=== PATIENT | male | born 1965 | race African-American/Black ===

== ENCOUNTER 2021-06-14 14:45 | Inpatient (IN) | payer MEDICAID ==
[~2021-06-14] VITALS: Ht 182.9 cm; Wt 103.0 kg
[~2021-06-14 14:45] MED LIST: AMLO-258 PO; ARIP5TAB37 PO; ASPI-1450 PO; ATEN-72 PO; ATOR20TA86 PO; BUSP10TA23 PO; DULO30CA89 PO; LISI20TA PO; METF-1211 PO; PANT-31 PO
[2021-06-14] MEDS ORDERED: KETOROLAC TROMETHAMINE 30 MG/ML VIAL IVP ONE (15:00)
[2021-06-14] MEDS ORDERED: SODIUM CHLORIDE 0.9% 100 ML ONE ×2 (15:07→22:32)
[2021-06-14] MEDS ORDERED: IOHEXOL 350 MG/ML 100 ML VIAL ONE ×2 (15:07→22:32)
[2021-06-14 15:32] LABS: COVID AG,FIA SOURCE NASOPHARYNGEAL
[2021-06-14 15:35] LABS: EOSINOPHILS % (AUTO) 1.6 % (1.0-6.0); HEMATOCRIT 42.3 % (41-53); HEMOGLOBIN 14.9 g/dL (13.5-17.5); LYMPHOCYTES # (AUTO) 1.6 K/uL (1.0-4.8); LYMPHOCYTES % (AUTO) 27.8 % (22.0-44.0); MEAN CORPUSCULAR HGB CONC 35.1 G/dL (31.0-37.0); MEAN CORPUSCULAR VOLUME 83 fL (80-100); MONOCYTES # (AUTO) 0.3 K/uL (0.1-1.0); MONOCYTES % (AUTO) 5.9 % (2.0-9.0); NEUTROPHILS # (AUTO) 3.7 K/uL (1.8-7.7); NEUTROPHILS % (AUTO) 63.7 % (40.0-70.0); PLATELET COUNT (AUTO) 248 K/uL (150-450); RED BLOOD CELL COUNT(AUTO) 5.12 MIL/uL (4.50-5.90); RED CELL DISTRIBUTION WIDTH 15.6 % (11.5-14.5)
[2021-06-14 15:50] LABS: ANION GAP 5 mmol/L (8-16); CALCIUM, TOTAL 9.3 mg/dL (8.8-10.5); CARBON DIOXIDE 29 mmol/L (22-29); CHLORIDE 105 mmol/L (98-107); CREATININE 1.32 mg/dL (0.60-1.30); GLUCOSE,RANDOM 104 mg/dL (70-110); POTASSIUM 3.5 mmol/L (3.5-5.1); SODIUM SERUM 139 mmol/L (136-145); UREA NITROGEN, BLOOD 18 mg/dL (7-18)
[2021-06-14 15:51] LABS: GLOMERULAR FILTR. RATE CALC > 60 mL/min (>60)
[2021-06-14 15:56] LABS: ALANINE AMINOTRANSFERASE 25 U/L (12-78); ALBUMIN 3.1 g/dL (3.4-5.0); ALKALINE PHOSPHATASE 153 U/L (46-116); ASPARTATE AMINOTRANSFERASE 19 U/L (15-37); BILIRUBIN,TOTAL 0.2 mg/dL (0.1-1.0); CREATINE KINASE, TOTAL ONLY 63 U/L (39-308); TOTAL PROTEIN, SERUM 6.9 g/dL (6.4-8.2)
[2021-06-14 16:02] LABS: PROTHROMBIN TIME 10.7 SEC (9.4-11.6)
[2021-06-14 16:46] LABS: B-TYPE NATRIURETIC PEPTIDE 40 pg/mL (0-100)
[2021-06-14 17:07] LABS: GLUCOMETER DEV NAME(LOC) ERT.5; GLUCOSE,POINT OF CARE 101 MG/DL (70-110)
[2021-06-14 17:09] LABS: APPEARANCE,URINE CLEAR (CLEAR); BILIRUBIN,URINE NEGATIVE (NEGATIVE); GLUCOSE, URINE (UA) 100 mg/dL (NEGATIVE); KETONES,URINE NEGATIVE (NEGATIVE); LEUKOCYTE ESTERASE ,URINE NEGATIVE (NEGATIVE); NITRATE,URINE NEGATIVE (NEGATIVE); OCCULT BLOOD,URINE NEGATIVE (NEGATIVE); PROTEIN,URINE SEE CONFIRM (NEGATIVE)
[2021-06-14 18:01] LABS: SULFOSALICYLIC ACID,URINE 3+ (Negative)
[2021-06-14 18:16] LABS: BACTERIA,URINE None Seen /HPF (None Seen); RBC,URINE None Seen /HPF (0-2); WBC,URINE 0-2 /HPF (0-5)
[2021-06-14] MEDS ORDERED: MAGNESIUM HYDROXIDE SUSPENSION 30 ML UDCUP PO PRN (19:15)
[2021-06-14] MEDS ORDERED: ZOLPIDEM TARTRATE 5 MG TABLET PO PRN (19:15)
[2021-06-14] MEDS ORDERED: HydrALAZINE HCL 20 MG/ML VIAL IVP ONE (19:15)
[2021-06-14] MEDS ORDERED: BISACODYL 10 MG RECTAL RECTAL SUPPOSITORY PR PRN (19:15)
[2021-06-14] MEDS ORDERED: ALBUTEROL SULFATE 2.5 MG/0.5 ML NEB SOLUTION NEB PRN (19:15)
[2021-06-14] MEDS ORDERED: MORPHINE SULFATE 2 MG/ML SYRINGE IVP PRN (19:15)
[2021-06-14] MEDS ORDERED: IPRATROPIUM BROMIDE 0.5 MG/2.5 ML NEB SOLUTION NEB PRN (19:15)
[2021-06-14] MEDS ORDERED: ACETAMINOPHEN 325 MG TABLET PO PRN (19:15)
[2021-06-14] MEDS ORDERED: HYDROCODONE/ACETAMINOPHEN 5-325 MG TABLET PO PRN (19:15)
[2021-06-14] MEDS: DOCUSATE SODIUM 100 MG CAPSULE PO SCH (20:14)
[2021-06-14] MEDS: AmLODIPine BESYLATE 10 MG TABLET PO SCH (21:33)
[2021-06-14] MEDS: HydrALAZINE HCL 20 MG/ML VIAL IVP PRN (21:33)
[2021-06-14] MEDS: ATORVASTATIN CALCIUM 20 MG TABLET PO SCH (21:33)
[2021-06-14] MEDS: ARIPiprazole 5 MG TABLET PO SCH (21:33)
[2021-06-14] MEDS: BusPIRone HCL 10 MG TABLET PO SCH (21:33)
[2021-06-14] MEDS ORDERED: MORPHINE SULFATE 2 MG/ML SYRINGE IVP ONE (22:30)
[2021-06-14] MEDS ORDERED: MAG HYDROX/AL HYDROX/SIMETH 30 ML SUSP UDCUP PO ONE (22:30)
[2021-06-14] MEDS: HEPARIN SODIUM,PORCINE 5,000 UNITS/ML VIAL SQ SCH (23:02)
[2021-06-14] MEDS: NITROGLYCERIN 2% (1 GM=INCH) PACKET TP SCH (23:17)
[2021-06-15 02:43] LABS: CHOL/HDL RATIO 5.6 (4.2-7.3)
[2021-06-15] MEDS: NITROGLYCERIN 2% (1 GM=INCH) PACKET TP SCH (06:26)
[2021-06-15] MEDS: HydrALAZINE HCL 20 MG/ML VIAL IVP PRN (07:32)
[2021-06-15] MEDS: HEPARIN SODIUM,PORCINE 5,000 UNITS/ML VIAL SQ SCH ×3 (07:33→23:40)
[2021-06-15] MEDS: ARIPiprazole 5 MG TABLET PO SCH ×2 (09:00→20:40)
[2021-06-15] MEDS: AmLODIPine BESYLATE 10 MG TABLET PO SCH (09:00)
[2021-06-15] MEDS: BusPIRone HCL 10 MG TABLET PO SCH ×2 (09:00→20:40)
[2021-06-15] MEDS ORDERED: ASPIRIN 81 MG CHEWABLE TABLET PO SCH (09:00)
[2021-06-15] MEDS: ASPIRIN 81 MG CHEWABLE TABLET PO SCH (09:17)
[2021-06-15] MEDS: PANTOPRAZOLE SODIUM 40 MG DR TABLET PO SCH (09:17)
[2021-06-15] MEDS: DOCUSATE SODIUM 100 MG CAPSULE PO SCH ×2 (09:17→20:40)
[2021-06-15] MEDS: DULoxetine HCL 60 MG CAPSULE PO SCH (13:43)
[2021-06-15] MEDS: ATENOLOL 100 MG TABLET PO SCH (13:43)
[2021-06-15 16:06] VITALS: BP 147/99
[2021-06-15 19:40] VITALS: BP 152/87
[2021-06-15] MEDS: ONDANSETRON HCL 4 MG/2 ML VIAL IVP PRN ×2 (20:40→20:41)
[2021-06-15] MEDS: ATORVASTATIN CALCIUM 20 MG TABLET PO SCH (20:40)
[2021-06-15 23:45] VITALS: BP 152/92
[2021-06-16 04:20] VITALS: BP 142/80
[2021-06-16 07:21] VITALS: BP 140/82
[2021-06-16] MEDS: ARIPiprazole 5 MG TABLET PO SCH (08:19)
[2021-06-16] MEDS: AmLODIPine BESYLATE 10 MG TABLET PO SCH (08:19)
[2021-06-16] MEDS: HEPARIN SODIUM,PORCINE 5,000 UNITS/ML VIAL SQ SCH (08:19)
[2021-06-16] MEDS: PANTOPRAZOLE SODIUM 40 MG DR TABLET PO SCH (08:20)
[2021-06-16] MEDS: DULoxetine HCL 60 MG CAPSULE PO SCH (08:20)
[2021-06-16] MEDS: DOCUSATE SODIUM 100 MG CAPSULE PO SCH (08:20)
[2021-06-16] MEDS: ASPIRIN 81 MG CHEWABLE TABLET PO SCH (08:20)
[2021-06-16] MEDS: BusPIRone HCL 10 MG TABLET PO SCH (08:20)
[2021-06-16] MEDS: ATENOLOL 100 MG TABLET PO SCH (08:20)
[2021-06-16 11:14] VITALS: BP 141/81
== END 2021-06-16 14:40 | disposition home or self-care (01) | DRG 52 ==
LOC: EMS 15:07 → 5S 06-15 15:52
PROVIDERS: ADMIT Hospitalist; ATTEND Hospitalist
DX: G92.9 Unspecified toxic encephalopathy (principal); E44.0 Moderate protein-calorie malnutrition; E11.9 Type 2 diabetes mellitus without complications; J44.9 Chronic obstructive pulmonary disease, unspecified; E66.9 Obesity, unspecified; E78.00 Pure hypercholesterolemia, unspecified; E78.5 Hyperlipidemia, unspecified; F15.90 Other stimulant use, unspecified, uncomplicated; I10 Essential (primary) hypertension; Z20.822 Contact with and (suspected) exposure to COVID-19; F99 Mental disorder, not otherwise specified; F41.9 Anxiety disorder, unspecified; F25.9 Schizoaffective disorder, unspecified; Z68.30 Body mass index [BMI] 30.0-30.9, adult; Z91.14 Patient's other noncompliance with medication regimen; Z72.0 Tobacco use
CPT/HCPCS: 71045; 71275; 74175; 74177; 80053; 80061; 81001; 81002; 81003; 82550; 82962; 83880; 84484; 85025; 85610; 85730; 93005; 93306; 99285; J0360; J1644; J1885; J2270; J2405; J7050; Q9967; 36415-L1; 36415-TC

== ENCOUNTER 2021-10-17 16:28 | Inpatient (IN) | payer MEDICAID ==
[~2021-10-17 16:28] MED LIST changes: +DULO-114 PO; -DULO30CA89 PO; -LISI20TA PO
[2021-10-17] MEDS ORDERED: HALOPERIDOL 5 MG TABLET PO PRN (17:30)
[2021-10-17] MEDS ORDERED: PNEUMOCOCCAL VACCINE POLYVALENT 0.5 ML VIAL [PPSV23] IM. ONE (17:30)
[2021-10-17 17:31] LABS: GLUCOMETER DEV NAME(LOC) POC.BV
[2021-10-17 19:21] VITALS: BP 157/96
[2021-10-17 19:36] LABS: GLUCOMETER DEV NAME(LOC) BV3N.; GLUCOSE,POINT OF CARE 78 MG/DL (70-110)
[2021-10-17] MEDS ORDERED: ALBUTEROL SULFATE HFA 90 MCG/PUFF 8 GM INHALER IH PRN (20:15)
[2021-10-17] MEDS ORDERED: BENZOCAINE/MENTHOL LOZENGE PO PRN (20:15)
[2021-10-17] MEDS ORDERED: MAG HYDROX/AL HYDROX/SIMETH ES 30 ML SUSPENSION UDCUP PO PRN (20:15)
[2021-10-17] MEDS ORDERED: GLUCAGON,HUMAN RECOMBINANT 1 MG VIAL IM PRN (20:15)
[2021-10-17] MEDS ORDERED: ACETAMINOPHEN 325 MG TABLET PO PRN (20:15)
[2021-10-17] MEDS ORDERED: PETROLATUM,WHITE 28 GM JELLY TP PRN (20:15)
[2021-10-17] MEDS ORDERED: CloNIDine HCL 0.1 MG TABLET PO PRN (20:15)
[2021-10-17] MEDS ORDERED: LOPERAMIDE HCL 2 MG CAPSULE PO PRN (20:15)
[2021-10-17] MEDS ORDERED: BACITRACIN 28 GM OINTMENT TP PRN (20:15)
[2021-10-17] MEDS ORDERED: ONDANSETRON HCL 4 MG TABLET PO PRN (20:15)
[2021-10-17] MEDS ORDERED: IBUPROFEN 600 MG TABLET PO PRN (20:15)
[2021-10-17] MEDS ORDERED: MAGNESIUM HYDROXIDE SUSPENSION 30 ML UDCUP PO PRN (20:15)
[2021-10-17 22:36] LABS: GLUCOMETER DEV NAME(LOC) BV3S.; GLUCOSE,POINT OF CARE 156 MG/DL (70-110)
[2021-10-18 06:41] LABS: GLUCOMETER DEV NAME(LOC) BV3N.; GLUCOSE,POINT OF CARE 147 MG/DL (70-110)
[2021-10-18] MEDS: MetFORMIN HCL 500 MG TABLET PO SCH ×2 (06:50→16:18)
[2021-10-18 08:03] VITALS: BP 138/76
[2021-10-18] MEDS: ATENOLOL 50 MG TABLET PO SCH (08:08)
[2021-10-18] MEDS: AmLODIPine BESYLATE 10 MG TABLET PO SCH (08:08)
[2021-10-18] MEDS: DOCUSATE SODIUM 100 MG CAPSULE PO SCH (08:09)
[2021-10-18] MEDS: OMEPRAZOLE 20 MG CAPSULE PO SCH (08:09)
[2021-10-18] MEDS: ASPIRIN 81 MG CHEWABLE TABLET PO SCH (08:09)
[2021-10-18 08:16] LABS: BASOPHILS % (AUTO) 0.3 % (0.0-2.0); EOSINOPHILS % (AUTO) 3.7 % (1.0-6.0); HEMATOCRIT 41.1 % (41-53); HEMOGLOBIN 14.7 g/dL (13.5-17.5); LYMPHOCYTES # (AUTO) 2.7 K/uL (1.0-4.8); LYMPHOCYTES % (AUTO) 40.6 % (22.0-44.0); MEAN CORPUSCULAR HEMOGLOBIN 29.8 pg (26.0-34.0); MEAN CORPUSCULAR HGB CONC 35.6 G/dL (31.0-37.0); MEAN CORPUSCULAR VOLUME 84 fL (80-100); MONOCYTES # (AUTO) 0.4 K/uL (0.1-1.0); MONOCYTES % (AUTO) 6.4 % (2.0-9.0); NEUTROPHILS # (AUTO) 3.2 K/uL (1.8-7.7); PLATELET COUNT (AUTO) 233 K/uL (150-450); RED BLOOD CELL COUNT(AUTO) 4.92 MIL/uL (4.50-5.90); RED CELL DISTRIBUTION WIDTH 15.4 % (11.5-14.5)
[2021-10-18 08:33] LABS: ALBUMIN 3.1 g/dL (3.4-5.0); BILIRUBIN,TOTAL 0.3 mg/dL (0.1-1.0); CALCIUM, TOTAL 8.8 mg/dL (8.8-10.5); CHOL/HDL RATIO 6.1 (4.2-7.3); CREATININE 1.46 mg/dL (0.60-1.30); FREE T4 (FREE THYROXINE) 1.13 ng/dL (0.76-1.46); HEMOGLOBIN A1C 6.3 % (3.8-5.6); POTASSIUM 3.3 mmol/L (3.5-5.1); THYROID STIMULATING HORMONE 1.24 uIU/mL (0.36-3.74); TOTAL PROTEIN, SERUM 6.5 g/dL (6.4-8.2)
[2021-10-18] MEDS: CITALOPRAM HYDROBROMIDE 20 MG TABLET PO SCH (09:00)
[2021-10-18] MEDS: ARIPiprazole 5 MG TABLET PO SCH (09:00)
[2021-10-18] MEDS: INSULIN LISPRO 100 UNITS/ML SQ PRN (11:28)
[2021-10-18 11:36] LABS: GLUCOMETER DEV NAME(LOC) BV3N.; GLUCOSE,POINT OF CARE 158 MG/DL (70-110)
[2021-10-18 16:07] VITALS: BP 107/69
[2021-10-18 16:41] LABS: GLUCOMETER DEV NAME(LOC) BV3N.; GLUCOSE,POINT OF CARE 125 MG/DL (70-110)
[2021-10-18] MEDS ORDERED: NICOTINE 14 MG/24 HOUR PATCH TD PRN (18:15)
[2021-10-18] MEDS: ATORVASTATIN CALCIUM 20 MG TABLET PO SCH (20:06)
[2021-10-18 20:26] LABS: GLUCOMETER DEV NAME(LOC) BV3N.; GLUCOSE,POINT OF CARE 106 MG/DL (70-110)
[2021-10-18] MEDS: ZOLPIDEM TARTRATE 10 MG TABLET PO PRN (23:44)
[2021-10-18] MEDS: LORazepam 2 MG TABLET PO PRN (23:44)
[2021-10-19 01:24] VITALS: BP 128/77
[2021-10-19] MEDS: MetFORMIN HCL 500 MG TABLET PO SCH ×2 (06:22→16:13)
[2021-10-19 06:26] LABS: GLUCOMETER DEV NAME(LOC) BV3N.; GLUCOSE,POINT OF CARE 127 MG/DL (70-110)
[2021-10-19] MEDS: ARIPiprazole 5 MG TABLET PO SCH (08:08)
[2021-10-19] MEDS: DOCUSATE SODIUM 100 MG CAPSULE PO SCH (08:08)
[2021-10-19] MEDS: CITALOPRAM HYDROBROMIDE 20 MG TABLET PO SCH (08:08)
[2021-10-19] MEDS: OMEPRAZOLE 20 MG CAPSULE PO SCH (08:08)
[2021-10-19] MEDS: AmLODIPine BESYLATE 10 MG TABLET PO SCH (08:08)
[2021-10-19] MEDS: ASPIRIN 81 MG CHEWABLE TABLET PO SCH (08:08)
[2021-10-19] MEDS: ATENOLOL 50 MG TABLET PO SCH (08:08)
[2021-10-19 08:27] VITALS: BP 132/80
[2021-10-19 12:31] LABS: GLUCOMETER DEV NAME(LOC) BV3N.; GLUCOSE,POINT OF CARE 107 MG/DL (70-110)
[2021-10-19 16:05] VITALS: BP 140/88
[2021-10-19] MEDS: LORazepam 2 MG TABLET PO PRN (16:12)
[2021-10-19 16:40] LABS: GLUCOMETER DEV NAME(LOC) BV3N.; GLUCOSE,POINT OF CARE 108 MG/DL (70-110)
[2021-10-19 20:26] LABS: GLUCOMETER DEV NAME(LOC) BV3N.; GLUCOSE,POINT OF CARE 111 MG/DL (70-110)
[2021-10-19] MEDS: ZOLPIDEM TARTRATE 10 MG TABLET PO PRN (20:29)
[2021-10-19] MEDS: ATORVASTATIN CALCIUM 20 MG TABLET PO SCH (20:29)
[2021-10-20] MEDS: LORazepam 2 MG TABLET PO PRN ×3 (00:55→16:52)
[2021-10-20] MEDS: MetFORMIN HCL 500 MG TABLET PO SCH ×2 (06:29→16:52)
[2021-10-20 06:31] LABS: GLUCOMETER DEV NAME(LOC) BV3N.; GLUCOSE,POINT OF CARE 117 MG/DL (70-110)
[2021-10-20 07:33] LABS: APPEARANCE,URINE CLEAR (CLEAR); BILIRUBIN,URINE NEGATIVE (NEGATIVE); GLUCOSE, URINE (UA) NEGATIVE (NEGATIVE); KETONES,URINE NEGATIVE (NEGATIVE); LEUKOCYTE ESTERASE ,URINE NEGATIVE (NEGATIVE); NITRATE,URINE NEGATIVE (NEGATIVE); OCCULT BLOOD,URINE NEGATIVE (NEGATIVE); PH,URINE 6.5 (5.0-8.0); PROTEIN,URINE 30-70 mg/dL (NEGATIVE); SPECIFIC GRAVITIY, URINE 1.018 (1.003-1.030); UROBILINOGEN,URINE <=1.0 mg/dL (<=1.0)
[2021-10-20 07:54] LABS: AMPHET/METH SCREEN,URINE POSITIVE (NEGATIVE); BARBITURATE SCREEN, URINE NEGATIVE (NEGATIVE); BENZODIAZEPINES SCREEN,URINE NEGATIVE (NEGATIVE); CANNABINOID SCREEN,URINE POSITIVE (NEGATIVE); COCAINE SCREEN,URINE NEGATIVE (NEGATIVE); METHADONE SCREEN, URINE NEGATIVE (NEGATIVE); OPIATE SCREEN,URINE NEGATIVE (NEGATIVE); PHENCYCLIDINE SCREEN,URINE NEGATIVE (NEGATIVE)
[2021-10-20 08:07] VITALS: BP 18/85
[2021-10-20] MEDS: DOCUSATE SODIUM 100 MG CAPSULE PO SCH (08:26)
[2021-10-20] MEDS: ARIPiprazole 5 MG TABLET PO SCH (08:26)
[2021-10-20] MEDS: ASPIRIN 81 MG CHEWABLE TABLET PO SCH (08:26)
[2021-10-20] MEDS: AmLODIPine BESYLATE 10 MG TABLET PO SCH (08:26)
[2021-10-20] MEDS: OMEPRAZOLE 20 MG CAPSULE PO SCH (08:26)
[2021-10-20] MEDS: CITALOPRAM HYDROBROMIDE 20 MG TABLET PO SCH (08:31)
[2021-10-20] MEDS: ATENOLOL 50 MG TABLET PO SCH (09:03)
[2021-10-20 13:16] LABS: GLUCOMETER DEV NAME(LOC) BV3N.; GLUCOSE,POINT OF CARE 126 MG/DL (70-110)
[2021-10-20 16:07] VITALS: BP 163/90
[2021-10-20] MEDS: INSULIN LISPRO 100 UNITS/ML SQ PRN (16:54)
[2021-10-20 17:46] LABS: GLUCOMETER DEV NAME(LOC) BV3N.; GLUCOSE,POINT OF CARE 144 MG/DL (70-110)
[2021-10-20] MEDS: ATORVASTATIN CALCIUM 20 MG TABLET PO SCH (20:35)
[2021-10-20] MEDS: ZOLPIDEM TARTRATE 10 MG TABLET PO PRN (20:35)
[2021-10-20 20:56] LABS: GLUCOMETER DEV NAME(LOC) BV3N.; GLUCOSE,POINT OF CARE 107 MG/DL (70-110)
[2021-10-21] MEDS: MetFORMIN HCL 500 MG TABLET PO SCH (06:22)
[2021-10-21] MEDS: LORazepam 2 MG TABLET PO PRN (06:22)
[2021-10-21 06:32] LABS: GLUCOMETER DEV NAME(LOC) BV3N.; GLUCOSE,POINT OF CARE 105 MG/DL (70-110)
[2021-10-21 08:17] VITALS: BP 156/92
[2021-10-21] MEDS: AmLODIPine BESYLATE 10 MG TABLET PO SCH (08:19)
[2021-10-21] MEDS: DOCUSATE SODIUM 100 MG CAPSULE PO SCH (08:19)
[2021-10-21] MEDS: OMEPRAZOLE 20 MG CAPSULE PO SCH (08:19)
[2021-10-21] MEDS: ATENOLOL 50 MG TABLET PO SCH (08:19)
[2021-10-21] MEDS: ASPIRIN 81 MG CHEWABLE TABLET PO SCH (08:19)
[2021-10-21] MEDS: CITALOPRAM HYDROBROMIDE 20 MG TABLET PO SCH (08:20)
[2021-10-21] MEDS: ARIPiprazole 5 MG TABLET PO SCH (08:20)
[2021-10-21 11:36] LABS: GLUCOMETER DEV NAME(LOC) BV3N.; GLUCOSE,POINT OF CARE 181 MG/DL (70-110)
[2021-10-21] MEDS ORDERED: ARIP5TAB8 PO (12:16)
[2021-10-21] MEDS ORDERED: OMEP20 PO (12:17)
== END 2021-10-21 13:46 | disposition home or self-care (01) | DRG 750 ==
LOC: B3A 17:45
PROVIDERS: ADMIT Psychiatry & Neurology Psychiatry; ATTEND Psychiatry & Neurology Psychiatry
DX: F25.9 Schizoaffective disorder, unspecified (principal); E11.9 Type 2 diabetes mellitus without complications; E87.6 Hypokalemia; F15.10 Other stimulant abuse, uncomplicated; E78.5 Hyperlipidemia, unspecified; G89.29 Other chronic pain; I10 Essential (primary) hypertension; Z20.822 Contact with and (suspected) exposure to COVID-19; J44.9 Chronic obstructive pulmonary disease, unspecified; K21.9 Gastro-esophageal reflux disease without esophagitis; F17.200 Nicotine dependence, unspecified, uncomplicated; Z71.6 Tobacco abuse counseling; Z79.4 Long term (current) use of insulin
CPT/HCPCS: 80053; 80061; 80307; 81003; 82962; 83036; 84439; 84443; 85025

== ENCOUNTER 2022-10-18 09:22 | Inpatient (IN) | payer MEDICAID, OTHER ==
[~2022-10-18] VITALS: Ht 180.3 cm; Wt 110.0 kg
[~2022-10-18 09:22] MED LIST changes: -ARIP5TAB37 PO; +ARIP5TAB8 PO; +ATOR20TA PO; -ATOR20TA86 PO; -BUSP10TA23 PO; -DULO-114 PO; +OMEP20 PO; -PANT-31 PO
[2022-10-18 10:39] LABS: BASOPHILS % (AUTO) 0.3 % (0.0-2.0); HEMATOCRIT 42.8 % (41-53); HEMOGLOBIN 14.6 g/dL (13.5-17.5); LYMPHOCYTES # (AUTO) 1.6 K/uL (1.0-4.8); LYMPHOCYTES % (AUTO) 24.4 % (22.0-44.0); MEAN CORPUSCULAR VOLUME 85 fL (80-100); MONOCYTES # (AUTO) 0.4 K/uL (0.1-1.0); MONOCYTES % (AUTO) 5.6 % (2.0-9.0); NEUTROPHILS # (AUTO) 4.5 K/uL (1.8-7.7); NEUTROPHILS % (AUTO) 68.7 % (40.0-70.0); PLATELET COUNT (AUTO) 333 K/uL (150-450); RED BLOOD CELL COUNT(AUTO) 5.02 MIL/uL (4.50-5.90); RED CELL DISTRIBUTION WIDTH 14.4 % (11.5-14.5)
[2022-10-18 10:42] LABS: ANION GAP 6 mmol/L (8-16); CALCIUM, TOTAL 9.7 mg/dL (8.8-10.5); CARBON DIOXIDE 32 mmol/L (22-29); CHLORIDE 103 mmol/L (98-107); CREATININE 1.38 mg/dL (0.60-1.30); GLOMERULAR FILTR. RATE CALC > 60 mL/min (>60); GLUCOSE,RANDOM 164 mg/dL (70-110); POTASSIUM 3.6 mmol/L (3.5-5.1); SODIUM SERUM 141 mmol/L (136-145)
[2022-10-18] MEDS ORDERED: ACETAMINOPHEN 325 MG TABLET PO PRN (10:45)
[2022-10-18] MEDS ORDERED: DEXTROSE 50%-WATER 25 GM/50 ML SYRINGE IVP PRN ×2 (10:45)
[2022-10-18] MEDS ORDERED: INSULIN LISPRO 100 UNITS/ML SQ PRN (10:45)
[2022-10-18] MEDS ORDERED: MAGNESIUM HYDROXIDE SUSPENSION 30 ML UDCUP PO PRN (10:45)
[2022-10-18 10:48] LABS: ALANINE AMINOTRANSFERASE 34 U/L (12-78); ALKALINE PHOSPHATASE 146 U/L (46-116); ASPARTATE AMINOTRANSFERASE 23 U/L (15-37); BILIRUBIN,TOTAL 0.5 mg/dL (0.1-1.0); TOTAL PROTEIN, SERUM 7.8 g/dL (6.4-8.2)
[2022-10-18] MEDS: AmLODIPine BESYLATE 10 MG TABLET PO SCH (10:50)
[2022-10-18] MEDS: HEPARIN SODIUM,PORCINE 5,000 UNITS/ML VIAL SQ SCH ×2 (16:52→23:32)
[2022-10-18 16:54] VITALS: BP 150/104
[2022-10-18] MEDS: INSULIN LISPRO 100 UNITS/ML SQ PRN ×2 (17:51→21:46)
[2022-10-18 19:16] LABS: GLUCOMETER DEV NAME(LOC) 5S.2C; GLUCOSE,POINT OF CARE 141 MG/DL (70-110)
[2022-10-18 21:46] LABS: GLUCOMETER DEV NAME(LOC) 5N.2C; GLUCOSE,POINT OF CARE 161 MG/DL (70-110)
[2022-10-19] VITALS (7 sets, daily range): BP systolic 151–173; BP diastolic 94–109
[2022-10-19] MEDS: CloNIDine HCL 0.1 MG TABLET PO PRN ×2 (03:51→17:58)
[2022-10-19 06:45] LABS: GLUCOMETER DEV NAME(LOC) 5S.2C; GLUCOSE,POINT OF CARE 123 MG/DL (70-110)
[2022-10-19] MEDS: HEPARIN SODIUM,PORCINE 5,000 UNITS/ML VIAL SQ SCH ×3 (09:45→23:43)
[2022-10-19] MEDS: AmLODIPine BESYLATE 10 MG TABLET PO SCH (09:45)
[2022-10-19] MEDS: FAMOTIDINE 20 MG TABLET PO SCH (09:46)
[2022-10-19] MEDS ORDERED: LOSARTAN POTASSIUM 25 MG TABLET PO SCH (11:45)
[2022-10-19 15:13] LABS: AMPHET/METH SCREEN,URINE POSITIVE (NEGATIVE); BARBITURATE SCREEN, URINE NEGATIVE (NEGATIVE); BENZODIAZEPINES SCREEN,URINE NEGATIVE (NEGATIVE); CANNABINOID SCREEN,URINE POSITIVE (NEGATIVE); COCAINE SCREEN,URINE NEGATIVE (NEGATIVE); METHADONE SCREEN, URINE NEGATIVE (NEGATIVE); OPIATE SCREEN,URINE NEGATIVE (NEGATIVE); PHENCYCLIDINE SCREEN,URINE NEGATIVE (NEGATIVE)
[2022-10-19 17:01] LABS: GLUCOMETER DEV NAME(LOC) 5N.1C; GLUCOSE,POINT OF CARE 123 MG/DL (70-110)
[2022-10-19 20:31] LABS: GLUCOMETER DEV NAME(LOC) 5N.1C; GLUCOSE,POINT OF CARE 211 MG/DL (70-110)
[2022-10-19] MEDS: LOSARTAN POTASSIUM 25 MG TABLET PO SCH (21:38)
[2022-10-19] MEDS: CloNIDine HCL 0.1 MG TABLET PO SCH (21:38)
[2022-10-19] MEDS: INSULIN LISPRO 100 UNITS/ML SQ PRN (21:40)
[2022-10-19] MEDS: ZOLPIDEM TARTRATE 5 MG TABLET PO PRN (23:43)
[2022-10-20 05:02] VITALS: BP 148/105
[2022-10-20 06:16] LABS: GLUCOMETER DEV NAME(LOC) 5N.1C; GLUCOSE,POINT OF CARE 139 MG/DL (70-110)
[2022-10-20 07:58] LABS: ANION GAP 8 mmol/L (8-16); CARBON DIOXIDE 28 mmol/L (22-29); CHLORIDE 103 mmol/L (98-107); CREATININE 1.31 mg/dL (0.60-1.30); GLOMERULAR FILTR. RATE CALC > 60 mL/min (>60); GLUCOSE,RANDOM 134 mg/dL (70-110); POTASSIUM 3.5 mmol/L (3.5-5.1); SODIUM SERUM 139 mmol/L (136-145)
[2022-10-20] MEDS: FAMOTIDINE 20 MG TABLET PO SCH (08:18)
[2022-10-20] MEDS: CloNIDine HCL 0.1 MG TABLET PO SCH ×2 (08:18→20:27)
[2022-10-20] MEDS: AmLODIPine BESYLATE 10 MG TABLET PO SCH (08:18)
[2022-10-20] MEDS: HEPARIN SODIUM,PORCINE 5,000 UNITS/ML VIAL SQ SCH ×3 (08:19→23:41)
[2022-10-20] MEDS: LOSARTAN POTASSIUM 25 MG TABLET PO SCH ×2 (08:19→20:27)
[2022-10-20 08:23] VITALS: BP 163/98
[2022-10-20 11:31] VITALS: BP 149/97
[2022-10-20 11:50] LABS: GLUCOMETER DEV NAME(LOC) 5S.2C; GLUCOSE,POINT OF CARE 181 MG/DL (70-110)
[2022-10-20] MEDS: INSULIN LISPRO 100 UNITS/ML SQ PRN ×2 (12:35→21:12)
[2022-10-20] MEDS: CloNIDine HCL 0.1 MG TABLET PO PRN (15:38)
[2022-10-20 15:46] VITALS: BP 160/90
[2022-10-20 18:01] LABS: GLUCOMETER DEV NAME(LOC) 5S.2C; GLUCOSE,POINT OF CARE 137 MG/DL (70-110)
[2022-10-20 20:05] VITALS: BP 165/103
[2022-10-20] MEDS: ZOLPIDEM TARTRATE 5 MG TABLET PO PRN (20:36)
[2022-10-20 21:49] VITALS: BP 143/98
[2022-10-20 23:06] LABS: GLUCOMETER DEV NAME(LOC) 5S.2C; GLUCOSE,POINT OF CARE 180 MG/DL (70-110)
[2022-10-21 04:19] VITALS: BP 147/90
[2022-10-21 07:36] VITALS: BP 142/91
[2022-10-21] MEDS: FAMOTIDINE 20 MG TABLET PO SCH (08:23)
[2022-10-21] MEDS: LOSARTAN POTASSIUM 25 MG TABLET PO SCH ×2 (08:23→20:46)
[2022-10-21] MEDS: AmLODIPine BESYLATE 10 MG TABLET PO SCH (08:23)
[2022-10-21] MEDS: CloNIDine HCL 0.1 MG TABLET PO SCH ×2 (08:23→20:46)
[2022-10-21] MEDS: HEPARIN SODIUM,PORCINE 5,000 UNITS/ML VIAL SQ SCH ×3 (08:24→23:36)
[2022-10-21] MEDS: HYDROCHLOROTHIAZIDE 25 MG TABLET PO SCH (09:44)
[2022-10-21 11:22] LABS: GLUCOMETER DEV NAME(LOC) 6N.1; GLUCOSE,POINT OF CARE 124 MG/DL (70-110)
[2022-10-21] MEDS: SERTRALINE HCL 50 MG TABLET PO SCH (11:24)
[2022-10-21] MEDS: HydrOXYzine PAMOATE 50 MG CAPSULE PO PRN (12:56)
[2022-10-21 14:20] VITALS: BP 111/73
[2022-10-21 14:46] LABS: GLUCOMETER DEV NAME(LOC) 6S.1B; GLUCOSE,POINT OF CARE 136 MG/DL (70-110)
[2022-10-21] MEDS: INSULIN LISPRO 100 UNITS/ML SQ PRN ×2 (17:15→20:55)
[2022-10-21 18:31] LABS: GLUCOMETER DEV NAME(LOC) 6S.1B; GLUCOSE,POINT OF CARE 144 MG/DL (70-110)
[2022-10-21 19:16] VITALS: BP 136/76
[2022-10-21] MEDS: ZOLPIDEM TARTRATE 5 MG TABLET PO PRN (20:46)
[2022-10-21 23:36] LABS: GLUCOMETER DEV NAME(LOC) 6S.1B; GLUCOSE,POINT OF CARE 186 MG/DL (70-110)
[2022-10-22 05:01] VITALS: BP 134/82
[2022-10-22 06:51] LABS: GLUCOMETER DEV NAME(LOC) 6N.1; GLUCOSE,POINT OF CARE 114 MG/DL (70-110)
[2022-10-22 07:28] VITALS: BP 131/84
[2022-10-22] MEDS: AmLODIPine BESYLATE 10 MG TABLET PO SCH (08:38)
[2022-10-22] MEDS: HYDROCHLOROTHIAZIDE 25 MG TABLET PO SCH (08:38)
[2022-10-22] MEDS: FAMOTIDINE 20 MG TABLET PO SCH (08:38)
[2022-10-22] MEDS: LOSARTAN POTASSIUM 25 MG TABLET PO SCH ×2 (08:38→20:26)
[2022-10-22] MEDS: CloNIDine HCL 0.1 MG TABLET PO SCH ×2 (08:39→20:26)
[2022-10-22] MEDS: SERTRALINE HCL 50 MG TABLET PO SCH (08:39)
[2022-10-22] MEDS: HEPARIN SODIUM,PORCINE 5,000 UNITS/ML VIAL SQ SCH ×3 (08:39→23:55)
[2022-10-22] MEDS: INSULIN LISPRO 100 UNITS/ML SQ PRN ×2 (11:37→20:36)
[2022-10-22 12:10] LABS: BASOPHILS % (AUTO) 0.6 % (0.0-2.0); EOSINOPHILS % (AUTO) 3.9 % (1.0-6.0); LYMPHOCYTES # (AUTO) 2.1 K/uL (1.0-4.8); LYMPHOCYTES % (AUTO) 34.1 % (22.0-44.0); MEAN CORPUSCULAR HEMOGLOBIN 29.4 pg (26.0-34.0); MEAN CORPUSCULAR HGB CONC 34.9 G/dL (31.0-37.0); MEAN CORPUSCULAR VOLUME 84 fL (80-100); MONOCYTES # (AUTO) 0.4 K/uL (0.1-1.0); MONOCYTES % (AUTO) 6.4 % (2.0-9.0); NEUTROPHILS # (AUTO) 3.3 K/uL (1.8-7.7); PLATELET COUNT (AUTO) 273 K/uL (150-450); RED BLOOD CELL COUNT(AUTO) 4.74 MIL/uL (4.50-5.90); RED CELL DISTRIBUTION WIDTH 14.4 % (11.5-14.5)
[2022-10-22 12:16] LABS: CALCIUM, TOTAL 8.7 mg/dL (8.8-10.5); CREATININE 1.46 mg/dL (0.60-1.30); POTASSIUM 3.5 mmol/L (3.5-5.1)
[2022-10-22] MEDS ORDERED: CLON0.1T2 PO ×2 (13:54→14:22)
[2022-10-22] MEDS ORDERED: AMLO-258 PO (13:54)
[2022-10-22] MEDS ORDERED: FAMO20 PO (13:55)
[2022-10-22] MEDS ORDERED: LOSA-382 PO (14:19)
[2022-10-22] MEDS ORDERED: SERT-158 PO (14:20)
[2022-10-22] MEDS ORDERED: ACET-2247 PO (14:21)
[2022-10-22] MEDS ORDERED: INSU100V SQ (14:23)
[2022-10-22] MEDS ORDERED: MAGN-169 PO (14:23)
[2022-10-22] MEDS: HydrOXYzine PAMOATE 50 MG CAPSULE PO PRN (16:05)
[2022-10-22 19:55] VITALS: BP 136/80
[2022-10-22] MEDS: ZOLPIDEM TARTRATE 5 MG TABLET PO PRN (20:26)
[2022-10-22 21:36] LABS: GLUCOMETER DEV NAME(LOC) 6N.1; GLUCOSE,POINT OF CARE 170 MG/DL (70-110)
[2022-10-22 21:36] LABS: GLUCOMETER DEV NAME(LOC) 6N.1; GLUCOSE,POINT OF CARE 101 MG/DL (70-110)
[2022-10-23 04:15] VITALS: BP 123/76
[2022-10-23 05:26] LABS: GLUCOMETER DEV NAME(LOC) 6N.2B; GLUCOSE,POINT OF CARE 193 MG/DL (70-110)
[2022-10-23 06:07] LABS: GLUCOMETER DEV NAME(LOC) 4E.2; GLUCOSE,POINT OF CARE 108 MG/DL (70-110)
== END 2022-10-23 07:22 | DRG 305 ==
LOC: EMS 09:26 → 5S 15:41 → 5N 10-19 07:14 → 5S 10-20 21:35 → 6S 10-20 21:36
PROVIDERS: ADMIT Internal Medicine; ATTEND Internal Medicine
DX: I10 Essential (primary) hypertension (principal); F33.2 Major depressive disorder, recurrent severe without psychotic features; F25.9 Schizoaffective disorder, unspecified; E66.01 Morbid (severe) obesity due to excess calories; J44.9 Chronic obstructive pulmonary disease, unspecified; E11.9 Type 2 diabetes mellitus without complications; F15.10 Other stimulant abuse, uncomplicated; E78.00 Pure hypercholesterolemia, unspecified; Z79.84 Long term (current) use of oral hypoglycemic drugs; Z87.891 Personal history of nicotine dependence; Z68.33 Body mass index [BMI] 33.0-33.9, adult; Z59.00 Homelessness unspecified; Z82.49 Family history of ischemic heart disease and other diseases of the circulatory system; Z91.199 Patient's noncompliance with other medical treatment and regimen due to unspecified reason
CPT/HCPCS: 71045; 80048; 80053; 80307; 82962; 84484; 85025; 93005; 93306; 99285; J1644; 36415-L1; 36415-TC